=== PATIENT | female | born 1955 | race Hispanic/Latino ===

== ENCOUNTER 2018-01-04 12:28 | Outpatient (CLI) | payer BC ==
--- NOTE | 2018-01-05 10:40 | XRay Report ---
RIGHT KNEE RADIOGRAPHS INDICATION: Osteoarthritis of knee. COMPARISON: None similar at this institution. FINDINGS: AP, lateral and oblique right knee radiographs demonstrate normal arthroplasty components. No evidence of loosening. Mild soft tissue swelling anteriorly not entirely excluded. Osteopenia/osteoporosis. CONCLUSION: Replaced right knee without acute bony abnormality, as described. Thank you for the opportunity to participate in this patient's care.
== END 2018-01-04 12:29 | disposition home or self-care (01) ==
LOC: SPVIMAG 12:28
PROVIDERS: ATTEND Orthopaedic Surgery Sports Medicine
DX: Z47.1 Aftercare following joint replacement surgery (principal); Z96.651 Presence of right artificial knee joint